=== PATIENT | female | born 2000 | race Caucasian/White ===

== ENCOUNTER → 2025-01-22 | Outpatient (CLI) | payer BC, SELFPAY ==
--- NOTE | 2025-01-22 15:53 | XR_ITS ---
EXAMINATION: PA lateral chest 2 views TECHNIQUE: Upright PA lateral chest 2 views Date and time: January 22, 2025, 1603 hours INDICATIONS: Preop FINDINGS: Normal heart size Lungs are clear. The osseous rectors are intact. IMPRESSION: No active disease
== END | disposition home or self-care (01) ==
LOC: CDIM 15:44
PROVIDERS: PCP Family Medicine; Referring Provider Family Medicine; Visit Provider Family Medicine
DX: N18.6 End stage renal disease (principal); I10 Essential (primary) hypertension; Z01.818 Encounter for other preprocedural examination
CPT/HCPCS: 71046